=== PATIENT | female | born 1950 | race Caucasian/White ===

== ENCOUNTER → 2016-11-19 | Outpatient (CLI) | payer MEDICARE, OTHER ==
[2016-10-14 14:50] VITALS: BP 91/50
[~2016-11-19] MED LIST: AMIO200T PO; ANAS1TAB PO; ASPI-482 PO; ATOR10TA60 PO; ATOR40TA PO; BENZ100C2 PO; CARV12.52 PO; CARV6.25 PO; CEFP200T PO; CELE200C PO; CLON0.5T3 PO; DIGO125T PO; DIGO125T16 PO; DILT180C29 PO; DILT240C4 PO; FURO40TA4 PO; HYDR50TA6 PO; LEVO100T PO; LEVO88TA4 PO; LISI10TA2 PO; LOSA25TA PO; METO25TA9 PO; MULT-18 PO; RIVA20TA2 PO
--- NOTE | 2016-11-20 20:16 | RESP ---
DATE OF SERVICE: 11/19/2016 ORDERING PHYSICIAN: Hafsa Gómez APRN The patient's FVC was 3.0, which is 89% predicted; FEV1 1.70, which is 66% predicted; the FEV1/FVC ratio was reduced. There was no response to bronchodilators. Lung volume showed a total lung capacity of 154% predicted and residual volume of 279% predicted. Diffusion capacity is 56% predicted. IMPRESSION: 1. Moderate obstructive airway disease. 2. No response to bronchodilators. 3. Lung volumes consistent with hyperinflation and air trapping. 4. Moderately reduced diffusion capacity. DANIELLE CRAWFORD MD DR: ROCHELLE/sue JOB#: [id number] / [id number] HAFSA Sotelo APRN MTDD
== END | disposition home or self-care (01) ==
LOC: PF 10:17
PROVIDERS: ATTEND Nurse Practitioner
DX: I48.91 Unspecified atrial fibrillation (principal)
CPT/HCPCS: 94060; 94729

== ENCOUNTER → 2017-01-02 | Outpatient (CLI) | payer MEDICARE, OTHER ==
[2016-10-14 14:50] VITALS: BP 91/50
--- NOTE | 2017-01-02 13:42 | RAD ---
CT of the chest without contrast, 01/02/2017: History: Follow-up pulmonary nodules Noncontrast scans were obtained as requested. Comparison is made to a study from 10/09/2016. There are severe emphysematous changes in the lungs with scattered parenchymal scars. On the previous study a small suspicious density was noted in the right lower lobe. That density has regressed compatible with inflammation. There are several new peripheral parenchymal opacities in both lower lobes. For example there is a 2.5 cm peripheral opacity in the left lower lobe as seen on image 45 of series #2 which was not present on the previous study. There is a 16 mm subpleural opacity in the lateral aspect of the right lower lobe as seen on image 46 of series #2 which is new. There is a 3 cm opacity in the right lower lobe along the dome of the right hemidiaphragm as best seen on coronal image 39 of series #5 which was not present on the previous study. Two small subpleural nodules are now seen anteriorly in the right middle lobe. No pleural fluid is evident. Bronchial wall thickening is again noted, best seen in the lower lobes. Some of the bronchi are not aerated compatible with inspissated debris. Several areas of mild bronchiectasis are also evident such as in the anterior aspect of the right lower lobe. There is moderate calcific plaquing of the thoracic aorta and its branches including the coronary arteries. No aortic aneurysm is seen. There are calcified mediastinal lymph nodes. No mediastinal adenopathy is evident. The left breast is surgically absent. Several small renal calcifications are again noted. Moderate multilevel degenerative change is present in the spine. IMPRESSION: 1. Severe emphysema with chronic bronchitis. 2. Multiple new peripheral parenchymal opacities and nodules in the lung bases, likely inflammatory in nature. Small pulmonary infarcts could explain some of these densities. A neoplastic etiology cannot be excluded. Further CT follow-up is suggested. 3. Extensive calcific plaquing of the aorta and coronary arteries. PQRS Compliance Statement: One or more of the following individualized dose reduction techniques were utilized for this examination: 1. Automated exposure control 2. Adjustment of the mA and/or kV according to patient size 3. Use of iterative reconstruction technique
== END | disposition home or self-care (01) ==
LOC: CT 12:44
PROVIDERS: ATTEND Internal Medicine Critical Care Medicine
DX: J44.9 Chronic obstructive pulmonary disease, unspecified (principal)
CPT/HCPCS: 71250

== ENCOUNTER → 2017-03-27 | Outpatient (CLI) | payer MEDICARE, OTHER ==
[2016-10-14 14:50] VITALS: BP 91/50
--- NOTE | 2017-03-27 11:39 | RAD ---
CT of the chest without contrast, 03/27/2017: History: Pulmonary nodule follow-up Noncontrast scans were obtained with multiplanar reconstructions produced. Comparison is made to a study from 01/02/2017. There are severe emphysematous changes in the lungs. There are scattered parenchymal scars. There is bronchial wall thickening best seen in the lower lobes. Segments of some of the bronchi, particularly in the right lower lobe are not aerated suggesting inspissated debris. There are multiple peripheral opacities in the left lower lobe. These opacities have worsened posteriorly and medially. Lateral left lower lobe pulmonary opacities persist, but some have improved while others have worsened since the previous study. There are air bronchograms within some of these densities. The findings suggest chronic pneumonia. There are several new opacities present in the right lower lobe. These include a 19 mm irregular peripheral parenchymal opacity seen on image 133 of series #3, a similar elongated parenchymal opacity seen medially in the right lower lobe on image 225 of series #3 and smaller nodular opacities seen laterally in the right lower lobe on image 243 of series #3 and anteromedially in the right lower lobe on image 206 of series #3. A subpleural density seen laterally in the right lower lobe on the previous study has largely resolved. No pleural fluid is evident. There is calcific plaquing of the thoracic aorta and its branches without evidence of aneurysm. Moderate coronary artery calcifications are present. Small mediastinal lymph nodes are seen without evidence of pathologic enlargement. There are calcified subcarinal and right hilar lymph nodes compatible with old granulomatous disease. Several tiny intrarenal calcifications are again noted bilaterally. The left breast is surgically absent. No axillary adenopathy is seen. Moderate scattered degenerative changes are present in the spine. IMPRESSION: 1. Severe emphysema with chronic bronchitis. 2. Inspissated debris within scattered bronchi, particularly in the right lower lobe. 3. Moderate patchy peripheral opacities in both lower lobes, left greater than right. Some of these densities have regressed since the previous study while others, particularly in the left lower lobe, are new. The findings suggest chronic chronic pneumonitis. The waxing and waning nature of these opacities makes a neoplastic etiology less likely. 4. Coronary artery disease. PQRS Compliance Statement: One or more of the following individualized dose reduction techniques were utilized for this examination: 1. Automated exposure control 2. Adjustment of the mA and/or kV according to patient size 3. Use of iterative reconstruction technique
== END | disposition home or self-care (01) ==
LOC: CT 09:05
PROVIDERS: ATTEND Internal Medicine Hematology & Oncology
DX: R91.1 Solitary pulmonary nodule (principal)
CPT/HCPCS: 71250

== ENCOUNTER → 2020-07-02 | Outpatient (CLI) | payer MEDICARE, OTHER ==
[2016-10-14 14:50] VITALS: BP 91/50
[~2020-07-02] MED LIST changes: +BENZ-8 PO; -BENZ100C2 PO; +CARV12.511 PO; -CARV12.52 PO; +CLON-77 PO; -CLON0.5T3 PO; -DIGO125T PO; -DIGO125T16 PO; +DIGO125T3 PO; +DIGO125T79 PO; +LEVO-101 PO; -LEVO100T PO; +METO-239 PO; -METO25TA9 PO
[2020-07-02 13:18] LABS: BASO # 0.1 x10^3/uL (0.0-0.2); BASO % 1 % (0-3); EOS # 0.6 x10^3/uL (0.0-0.7); EOS % 6 % (0-3); HEMOGLOBIN 11.1 g/dL (12.0-15.5); LYMPH # 1.5 x10^3/uL (1.0-4.8); LYMPH % 15 % (24-48); MEAN CORPUSCULAR HEMOGLOBIN 33 pg (25-35); MEAN CORPUSCULAR HGB CONC 34 g/dL (31-37); MEAN CORPUSCULAR VOLUME 98 fL (79-100); MONO # 0.8 x10^3/uL (0.0-1.1); MONO % 8 % (0-9); NEUT # 7.2 x10^3/uL (1.8-7.7); NEUT % 71 % (31-73); PLATELET COUNT 290 x10^3/uL (140-400); RED BLOOD COUNT 3.38 x10^6/uL (3.50-5.40); RED CELL DISTRIBUTION WIDTH 15.1 % (11.5-14.5); WHITE BLOOD COUNT 10.2 x10^3/uL (4.0-11.0)
[2020-07-02 13:20] LABS: CALCIUM 8.6 mg/dL (8.5-10.1); CREATININE 1.4 mg/dL (0.6-1.0); GFR 37.3; POTASSIUM 4.5 mmol/L (3.5-5.1)
[2020-07-02 13:26] LABS: ALBUMIN 3.1 g/dL (3.4-5.0); ALBUMIN/GLOBULIN RATIO 0.8 (1.0-1.7); TOTAL BILIRUBIN 0.5 mg/dL (0.2-1.0); TOTAL PROTEIN 7.1 g/dL (6.4-8.2)
== END | disposition home or self-care (01) ==
LOC: ONCLAB 12:58
PROVIDERS: ATTEND Internal Medicine Hematology & Oncology
DX: C50.912 Malignant neoplasm of unspecified site of left female breast (principal)
CPT/HCPCS: 36415; 80053; 85025

== ENCOUNTER 2021-06-16 11:53 | Emergency (ER) | payer MEDICARE ==
[~2021-06-16] VITALS: Ht 167.6 cm; Wt 50.0 kg
[~2021-06-16 11:53] MED LIST changes: -HYDR50TA6 PO; +HYDR50TA9 PO; +LISI10TA16 PO; -LISI10TA2 PO
[2021-06-16] MEDS ORDERED: IV NORMAL SALINE 1000ML BAG 1,000 ML IV SCH (13:00)
--- NOTE | 2021-06-16 13:22 | PHYS DOC ---
Past Medical History Past Medical History: A-Fib, Cancer, High Cholesterol, Hypertension, Hypo thyroid, Other Additional Past Medical Histor: cervical ca,breast ca Past Surgical History: Hysterectomy, Tonsillectomy, Other Additional Past Surgical Histo: left knee Smoking Status: Former Smoker Alcohol Use: None Drug Use: None General Adult EDM: Chief Complaint: DIARRHEA HPI: HPI: Patient is a 70 year old female who present to ER for evaluation of diarrhea for 1 week. Patient complained of weakness and feeling dehydrated. Denies any fever, denies any cough, denies any chest pain or trouble breathing. Patient was vaccinated for COVID-19. Patient denies taking any antibiotic recently. Patient says she was initially constipated, she took some laxative and the diarrhea has not been stopped since. Review of Systems: Review of Systems: Constitutional: Denies fever or chills. [] Eyes: Denies change in visual acuity. [] HENT: Denies nasal congestion or sore throat. [] Respiratory: Denies cough or shortness of breath. [] Cardiovascular: Denies chest pain or edema. [] GI: Denies abdominal pain, nausea, vomiting, bloody stools positive for diarrhea : Denies dysuria. [] Musculoskeletal: Denies back pain or joint pain. [] Integument: Denies rash. [] Neurologic: Denies headache, focal weakness or sensory changes. [] Endocrine: Denies polyuria or polydipsia. [] Lymphatic: Denies swollen glands. [] Psychiatric: Denies depression or anxiety. [] Heart Score: C/O Chest Pain: N/A Risk Factors: Risk Factors: DM, Current or recent (<one month) smoker, HTN, HLP, family history of CAD, obesity. Risk Scores: Score 0 - 3: 2.5% MACE over next 6 weeks - Discharge Home Score 4 - 6: 20.3% MACE over next 6 weeks - Admit for Clinical Observation Score 7 - 10: 72.7% MACE over next 6 weeks - Early Invasive Strategies Current Medications: Current Medications Medications (Trade) Dose Ordered Sig/Walt Start Time Stop Time Status Last Admin Dose Admin Sodium Chloride 1,000 ml @ 1,000 mls/hr Q1H 06/16/21 13:00 06/16/21 13:59 Allergies: Allergies: Allergies Coded Allergies Type Severity Reaction Last Updated Verified No Known Drug Allergies 10/13/16 No Physical Exam: PE: Constitutional: Well developed, well nourished, no acute distress, non-toxic appearance. [] HENT: Normocephalic, atraumatic, bilateral external ears normal, dry oral mucosa t, no oral exudates, nose normal. [] Eyes: PERRLA, EOMI, conjunctiva normal, no discharge. [] Neck: Normal range of motion, no tenderness, supple, no stridor. [] Cardiovascular:Heart rate regular rhythm, no murmur [] Lungs & Thorax: Bilateral breath sounds clear to auscultation [] Abdomen: Bowel sounds normal, soft, no tenderness, no masses, no pulsatile masses. [] Skin: Warm, dry, no erythema, no rash. [] Back: No tenderness, no CVA tenderness. [] Extremities: No tenderness, no cyanosis, no clubbing, ROM intact, no edema. [] Neurologic: Alert and oriented X 3, normal motor function, normal sensory function, no focal deficits noted. [] Psychologic: Affect normal, judgement normal, mood normal. [] Current Patient Data: Labs: Laboratory Tests Test 06/16/21 13:35 White Blood Count 12.3 x10^3/uL Red Blood Count 4.33 x10^6/uL Hemoglobin 13.6 g/dL Hematocrit 40.8 % Mean Corpuscular Volume 94 fL Mean Corpuscular Hemoglobin 31 pg Mean Corpuscular Hemoglobin Concent 33 g/dL Red Cell Distribution Width 14.2 % Platelet Count 246 x10^3/uL Neutrophils (%) (Auto) 82 % Lymphocytes (%) (Auto) 11 % Monocytes (%) (Auto) 6 % Eosinophils (%) (Auto) 1 % Basophils (%) (Auto) 1 % Neutrophils # (Auto) 10.0 x10^3/uL Lymphocytes # (Auto) 1.3 x10^3/uL Monocytes # (Auto) 0.7 x10^3/uL Eosinophils # (Auto) 0.1 x10^3/uL Basophils # (Auto) 0.1 x10^3/uL Sodium Level 138 mmol/L Potassium Level 4.9 mmol/L Chloride Level 101 mmol/L Carbon Dioxide Level 30 mmol/L Anion Gap 7 Blood Urea Nitrogen 27 mg/dL Creatinine 1.4 mg/dL Estimated GFR (Cockcroft-Gault) 37.2 BUN/Creatinine Ratio 19 Glucose Level 77 mg/dL Calcium Level 9.0 mg/dL Magnesium Level 1.8 mg/dL Total Bilirubin 0.7 mg/dL Aspartate Amino Transf (AST/SGOT) 15 U/L Alanine Aminotransferase (ALT/SGPT) 21 U/L Alkaline Phosphatase 65 U/L Total Protein 6.9 g/dL Albumin 3.1 g/dL Albumin/Globulin Ratio 0.8 Lipase 28 U/L Current Medications Medications (Trade) Dose Ordered Sig/Walt Route PRN Reason Start Time Stop Time Status Last Admin Dose Admin Sodium Chloride 1,000 ml @ 1,000 mls/hr Q1H IV 06/16/21 13:00 06/16/21 13:59 DC 06/16/21 13:50 Sodium Chloride 1,000 ml @ 1,000 mls/hr 1X ONCE IV 06/16/21 16:30 06/16/21 17:29 Diphenoxylate HCl/ Atropine (Lomotil) 1 tab 1X ONCE PO 06/16/21 16:45 06/16/21 16:46 Metronidazole (Flagyl) 500 mg 1X ONCE PO 06/16/21 16:45 06/16/21 16:46 Vital Signs: Vital Signs Date Time Temp Pulse Resp B/P (MAP) Pulse Ox O2 Delivery O2 Flow Rate FiO2 06/16/21 12:55 98.1 55 18 120/54 (64) 95 Room Air 98.1 EKG: EKG: [] Radiology/Procedures: Radiology/Procedures: [][facility] [address] [place] [address] IMAGING REPORT Signed PATIENT: SHAY CABALLERO ACCOUNT: [id number] : 1950 LOCATION: ER AGE: 70 SEX: F EXAM STATUS: REG ER ORD. PHYSICIAN: JULIEN ROCHA DO REASON: ABDOMINAL PAIN PROCEDURE: CT ABDOMEN PELVIS WO CONTRAST CT ABDOMEN+PELVIS WO History: Abdominal pain. Comparison: CT chest 03/27/2017. Technique: CT of the abdomen and pelvis without intravenous contrast. Findings: Emphysematous changes the lung bases. Tree in bud and nodular opacities at the left greater than right lower lobes, less conspicuous than comparison CT. Heavy coronary artery calcification. The unenhanced liver, pancreas, spleen and adrenal glands are unremarkable. There are multiple 2-4 mm gallstones dependently layering in the gallbladder. Left renal atrophy. Multiple bilateral small nephroliths without hydronephrosis. The stomach is nondistended with mild diffuse wall thickening. The small bowel is decompressed. There is dense material within the colon which may represent ingested medication or contrast of uncertain source and timeframe. Contrast extends to the rectum. There is mild colonic wall thickening most notably at the distal descending. There is subtle diffuse mesenteric fluid. Trace pelvic fluid. No abdominal pelvic adenopathy identified within the limitations of noncontrast exam. Aorta iliac calcification without aneurysm. Mass like density of the right breast partially visualized. Soft tissues are otherwise unremarkable. Advanced degenerative changes of the lumbar spine with mild retrolisthesis of L1 on L2, mild anterolisthesis of L4 on L5 and mild to moderate anterolisthesis of L5 on S1. Multilevel advanced facet hypertrophy. No acute or pathologic osseous lesions identified. Impression: 1. Mild colonic wall thickening most notably at the distal descending colon. This may represent colitis versus under distention. 2. Masslike density in the partially visualized right breast. Correlate with physical exam and mammography. 3. Cholelithiasis. 4. Left renal atrophy and bilateral nephrolithiasis. No hydronephrosis. 5. Tree-in-bud and nodular opacities in the left greater than right lower lobes less conspicuous than prior may represent chronic infectious process. ------ Exposure: One or more of the following individualized dose reduction techniques were utilized for this examination: 1. Automated exposure control 2. Adjustment of the mA and/or kV according to patient size 3. Use of iterative reconstruction technique. Electronically signed by: Sunny Victoria MD (06/16/2021 3:51 PM) [id number] DICTATED and SIGNED BY: SUNNY VICTORIA MD DATE: 06/16/21 [id number] 0 Course & Med Decision Making: Course & Med Decision Making Pertinent Labs and Imaging studies reviewed. (See chart for details) Patient is a 70-year-old female who present to ER due to diarrhea. CT scan her abdomen pelvis show some evidence of colitis. Patient was given IV fluid in ER because of dehydration, patient be discharged home with Lomotil and Flagyl. Dragon Disclaimer: Dragon Disclaimer: This electronic medical record was generated, in whole or in part, using a voice recognition dictation system. Departure Departure Impression: Primary Impression: Diarrhea Additional Impression: Dehydration Disposition: HOME / SELF CARE / HOMELESS Condition: IMPROVED Referrals: PETRONA RIVERA MD Please follow up with your doctor in 2 days for reevaluation Patient Instructions: Dehydration, Adult, Diarrhea Additional Instructions: Thank you for visiting our Emergency Department. We appreciate you trusting us with your care. If any additional problems come up don't hesitate to return to visit us. Please follow up with your primary care provider so they can plan additional care if needed and know about the problem that you had. If symptoms worsen come back to the Emergency Department. Any concerning symptoms that start such as chest pain, shortness of air, weakness or numbness on one side of the body, running high fevers or any other concerning symptoms return to the ER. Scripts Metronidazole (FLAGYL) 500 Mg Tablet 500 MG PO TID for 7 Days, #21 TAB Prov: JULIEN ROCHA DO 06/16/21 Diphenoxylate Hcl/Atropine (LOMOTIL TABLET) 1 Each Tablet 1 TAB PO TID PRN for DIARRHEA, #21 TAB Prov: JULIEN ROCHA DO 06/16/21 JULIEN ROCHA DO Jun 16, 2021 13:22
[2021-06-16 13:58] LABS: BASO # 0.1 x10^3/uL (0.0-0.2); BASO % 1 % (0-3); EOS # 0.1 x10^3/uL (0.0-0.7); EOS % 1 % (0-3); HEMATOCRIT 40.8 % (36.0-47.0); HEMOGLOBIN 13.6 g/dL (12.0-15.5); LYMPH # 1.3 x10^3/uL (1.0-4.8); LYMPH % 11 % (24-48); MEAN CORPUSCULAR HEMOGLOBIN 31 pg (25-35); MEAN CORPUSCULAR HGB CONC 33 g/dL (31-37); MEAN CORPUSCULAR VOLUME 94 fL (79-100); MONO # 0.7 x10^3/uL (0.0-1.1); MONO % 6 % (0-9); NEUT % 82 % (31-73); PLATELET COUNT 246 x10^3/uL (140-400); RED BLOOD COUNT 4.33 x10^6/uL (3.50-5.40); RED CELL DISTRIBUTION WIDTH 14.2 % (11.5-14.5); WHITE BLOOD COUNT 12.3 x10^3/uL (4.0-11.0)
[2021-06-16 14:11] LABS: CREATININE 1.4 mg/dL (0.6-1.0); GFR 37.2; POTASSIUM 4.9 mmol/L (3.5-5.1)
[2021-06-16 14:17] LABS: ALBUMIN 3.1 g/dL (3.4-5.0); ALBUMIN/GLOBULIN RATIO 0.8 (1.0-1.7); MAGNESIUM 1.8 mg/dL (1.8-2.4); TOTAL BILIRUBIN 0.7 mg/dL (0.2-1.0); TOTAL PROTEIN 6.9 g/dL (6.4-8.2)
--- NOTE | 2021-06-16 15:53 | RAD ---
CT ABDOMEN+PELVIS WO History: Abdominal pain. Comparison: CT chest 03/27/2017. Technique: CT of the abdomen and pelvis without intravenous contrast. Findings: Emphysematous changes the lung bases. Tree in bud and nodular opacities at the left greater than righ t lower lobes, less conspicuous than comparison CT. Heavy coronary artery calcification. The unenhanced liver, pancreas, spleen and adrenal glands are unremarkable. There are multiple 2-4 mm gallstones dependently layering in the gallbladder. Left renal atrophy. Multiple bilateral small nep hroliths without hydronephrosis. The stomach is nondistended with mild diffuse wall thickening. The small bowel is decompressed. There is dense material within the colon which may represent ingested medication or contrast of uncertain source and timeframe. Contrast extends to the rectum. There is mild colonic wall thickening most nota mirta at the distal descending. There is subtle diffuse mesenteric fluid. Trace pelvic fluid. No abdominal pelvic adenopathy identifi ed within the limitations of noncontrast exam. Aorta iliac calcification without aneurysm. Mass like density of the right breast partially visualized. Soft tissues are otherwise unremarkable. Advanced degenerative changes of the lumbar spine with mild retrolisthesis of L1 on L2, mild anteroli sthesis of L4 on L5 and mild to moderate anterolisthesis of L5 on S1. Multilevel advanced facet hyper trophy. No acute or pathologic osseous lesions identified. Impression: 1. Mild colonic wall thickening most notably at the distal descending colon. This may represent coli tis versus under distention. 2. Masslike density in the partially visualized right breast. Correlate with physical exam and mammo graphy. 3. Cholelithiasis. 4. Left renal atrophy and bilateral nephrolithiasis. No hydronephrosis. 5. Tree-in-bud and nodular opacities in the left greater than right lower lobes less conspicuous criss n prior may represent chronic infectious process. ------ Exposure: One or more of the following individualized dose reduction techniques were utilized for thi s examination: 1. Automated exposure control 2. Adjustment of the mA and/or kV according to patient size 3. Use of iterative reconstruction technique. Electronically signed by: Sunny Avila MD (06/16/2021 3:51 PM) [id number]
[2021-06-16 16:13] VITALS: BP 117/54
[2021-06-16] MEDS ORDERED: IV NORMAL SALINE 1000ML BAG 1,000 ML IV ONE (16:30)
[2021-06-16] MEDS ORDERED: METR500T PO (16:40)
[2021-06-16] MEDS ORDERED: DIPH1TAB PO (16:40)
[2021-06-16] MEDS ORDERED: DIPHENOXYLATE/ATROPINE TABLET. PO ONE (16:45)
[2021-06-16] MEDS ORDERED: metroNIDAZOLE 500 MG TABLET PO ONE (16:45)
== END 2021-06-16 16:50 | disposition home or self-care (01) ==
LOC: ER 11:53
DX: E86.0 Dehydration (principal); R19.7 Diarrhea, unspecified; I48.91 Unspecified atrial fibrillation; E78.00 Pure hypercholesterolemia, unspecified; I10 Essential (primary) hypertension; E03.9 Hypothyroidism, unspecified; Z87.891 Personal history of nicotine dependence; Z90.710 Acquired absence of both cervix and uterus
CPT/HCPCS: 36415; 74176; 80053; 83690; 83735; 85025; 87493; 96360; 99285; J7030

== ENCOUNTER → 2021-10-21 | Outpatient (CLI) | payer MEDICARE ==
[~2021-10-21] MED LIST changes: +DIPH1TAB PO; +METR500T PO
[2021-10-21 13:24] LABS: BASO # 0.1 x10^3/uL (0.0-0.2); BASO % 1 % (0-3); EOS # 0.6 x10^3/uL (0.0-0.7); EOS % 6 % (0-3); HEMATOCRIT 40.6 % (36.0-47.0); HEMOGLOBIN 13.4 g/dL (12.0-15.5); LYMPH # 1.8 x10^3/uL (1.0-4.8); LYMPH % 19 % (24-48); MEAN CORPUSCULAR HEMOGLOBIN 32 pg (25-35); MEAN CORPUSCULAR HGB CONC 33 g/dL (31-37); MEAN CORPUSCULAR VOLUME 97 fL (79-100); MONO # 0.8 x10^3/uL (0.0-1.1); MONO % 8 % (0-9); NEUT # 6.4 x10^3/uL (1.8-7.7); NEUT % 66 % (31-73); PLATELET COUNT 261 x10^3/uL (140-400); RED BLOOD COUNT 4.21 x10^6/uL (3.50-5.40); RED CELL DISTRIBUTION WIDTH 13.9 % (11.5-14.5); WHITE BLOOD COUNT 9.7 x10^3/uL (4.0-11.0)
[2021-10-21 13:32] LABS: CALCIUM 9.1 mg/dL (8.5-10.1); CREATININE 1.2 mg/dL (0.6-1.0); GFR 44.3; POTASSIUM 5.3 mmol/L (3.5-5.1)
[2021-10-21 13:38] LABS: ALBUMIN 3.2 g/dL (3.4-5.0); ALBUMIN/GLOBULIN RATIO 0.7 (1.0-1.7); TOTAL BILIRUBIN 0.4 mg/dL (0.2-1.0); TOTAL PROTEIN 7.6 g/dL (6.4-8.2)
== END ==
LOC: ONCLAB 13:01
PROVIDERS: ATTEND Internal Medicine Hematology & Oncology
DX: C50.912 Malignant neoplasm of unspecified site of left female breast (principal)
CPT/HCPCS: 36415; 80053; 85025